=== PATIENT | male | born 1975 | race Two or more races ===

== ENCOUNTER 2017-07-09 16:12 | Emergency (ER) | payer MEDICAID ==
[~2017-07-09] VITALS: Ht 170.2 cm; Wt 80.4 kg
[2017-07-09 16:14] VITALS: BP 155/97
== END 2017-07-09 17:02 | disposition home or self-care (01) ==
LOC: ED 16:55
DX: F41.1 Generalized anxiety disorder (principal); F15.10 Other stimulant abuse, uncomplicated; F17.210 Nicotine dependence, cigarettes, uncomplicated
CPT/HCPCS: 99284; Q0177

== ENCOUNTER 2018-04-06 15:35 | Emergency (ER) | payer SELFPAY ==
[~2018-04-06] VITALS: Ht 170.2 cm; Wt 72.7 kg
[2018-04-06 15:41] VITALS: BP 132/79
== END 2018-04-06 16:25 | disposition home or self-care (01) ==
LOC: ED 16:19
DX: B35.3 Tinea pedis (principal); F17.210 Nicotine dependence, cigarettes, uncomplicated
CPT/HCPCS: 99282

== ENCOUNTER 2018-07-10 12:22 | Emergency (ER) | payer MEDICAID ==
[~2018-07-10] VITALS: Ht 170.2 cm; Wt 76.0 kg
[2018-07-10 12:26] VITALS: BP 116/58
[2018-07-10] MEDS ORDERED: RISP1TAB3 PO (12:47)
== END 2018-07-10 13:26 | disposition home or self-care (01) ==
LOC: ED 13:20
DX: K40.91 Unilateral inguinal hernia, without obstruction or gangrene, recurrent (principal); F17.200 Nicotine dependence, unspecified, uncomplicated; F20.9 Schizophrenia, unspecified
CPT/HCPCS: 99282